=== PATIENT | male | born 1980 | race Hispanic/Latino ===

== ENCOUNTER → 2020-09-05 | Outpatient (CLI) | payer BC | LOC: MRI 09:32 | PROVIDERS: ATTEND Internal Medicine | DX: M54.2 Cervicalgia (principal); M54.6 Pain in thoracic spine; M54.42 Lumbago with sciatica, left side; M54.16 Radiculopathy, lumbar region; G89.29 Other chronic pain; R20.0 Anesthesia of skin | CPT/HCPCS: 72141; 72146; 72148 ==